=== PATIENT | male | born 1955 | race Caucasian/White ===

== ENCOUNTER → 2019-07-11 | Day surgery (SDC) | payer OTHER ==
[~2019-07-11] MED LIST: ASPIR 8181 MG PO; B12INJ IM; COQ1050 MG PO; HYDROCODON-ACE1 EAC7 PO; LIPITOR80 MG PO; NEURONTIN600 MG PO; NEXIUM40 MG PO; NORTRIPTYLINE H50 M3 PO; VITAMIN D32000 UNIT PO
--- NOTE | ~2019-07-11 | OP ---
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 POSTOPERATIVE DIAGNOSIS: Rnyqxyw-ix-tno. SURGEON: Dr. Bandar Vyas. [employer] EXAMINER: Nathanael Guerra, PGY5 and Blanco Huerta, MS4. OPERATION PERFORMED: 1. Examination under anesthesia. 2. Seton placement. ANESTHESIA: General. ESTIMATED BLOOD LOSS: 2 mL. SPECIMENS REMOVED: None. COMPLICATIONS: None. 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 DESCRIPTION OF PROCEDURE: After the appropriate consents were obtained, the patient was taken to the operating room, laid in supine position. He had SCDs placed on his bilateral lower extremities, a safety strap placed across his lap. He had his arm placed out to the side in neutral position. All lines placed by Anesthesia. He was sedated and he had a LMA placed by anesthesiologist without difficulty. The patient was then placed in the candy cane stirrups and was placed in a slight Trendelenburg position. His perianal region was prepped and draped in a standard sterile fashion. A timeout was performed to correctly identify the patient and procedure. He was given perioperative antibiotics at [address] [address] OPERATIVE REPORT Name: GRISEL PERKINS Room: [facility]#: [id number] Admission: 07/11/19 Attend Phys: Bandar Vyas DO Discharge: Date of : 55 Report #: [id number] this time. We started by doing an obvious external inspection, which was obvious. The patient had a small opening on the left lateral side of his anus. It was unsure if this fistula initially. On good external examination it was noted that the patient had rather significant hemorrhoids present. Using a speculum we were able to do a good rectal exam. First, we did a digital rectal exam, did not feel any type of mass, but we did note that he probably had some internal hemorrhoids as well. Then, using a speculum, we were able to visualize inside his rectum and again did not see any masses, but he did have a notable hemorrhoids. After a thorough inspection was performed we obtained some hydrogen peroxide on an Angiocath and syringe and this was injected into the opening on the left lateral side of his anus. Initially, we did not see any hydrogen peroxide running into his rectum, but after obtaining a little bit more solution we were able to visualize the proximal running within his rectum. This confirmed our suspicion for [id number]. We elected to place a Seton at this time. We used a small blue vessel loop to act as a Seton and it was tied together using a silk suture. 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 We elected to finish the procedure at this time and send the patient to a colorectal for further evaluation. The patient's perineal region was cleaned and dried adequately. All counts were correct x 2 at the end of the procedure. Dr. Vyas was present and scrubbed for the entirety of this procedure. By: [id number] Zay Vyas DO /nt
[2019-07-11 11:47] LABS: HEMATOCRIT 45.3 % (42.0-52.0); HEMOGLOBIN 15.6 gm/dL (14.0-18.0); MCH 32.8 pg (26.0-34.0); MCHC 34.5 g/dL (28.0-37.0); MPV 7.9 fl. (7.2-11.1); RBC 4.77 mil/uL (4.50-6.00); RDW-CV 13.1 % (10.5-14.5); WBC 5.4 thou/uL (4.0-11.0)
[2019-07-11 11:52] LABS: CALCIUM 9.6 mg/dL (8.5-10.1); POTASSIUM 4.5 mmol/L (3.5-5.1)
[2019-07-11 11:56] LABS: ALBUMIN 4.5 g/dL (3.4-5.0); TOTAL BILIRUBIN 0.6 mg/dL (<0.1-1.0); TOTAL PROTEIN 8.1 g/dL (6.4-8.2)
--- NOTE | 2019-07-12 10:29 | EKG ---
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
== END | disposition home or self-care (01) ==
LOC: M.SUR 06:24
PROVIDERS: Surgery
DX: K60.3 Anal fistula (principal); K64.4 Residual hemorrhoidal skin tags; Z79.82 Long term (current) use of aspirin; Z79.899 Other long term (current) drug therapy